=== PATIENT | male | born 1950 | race Caucasian/White ===

== ENCOUNTER 2018-01-29 15:17 | Outpatient (CLI) | payer MEDICARE | END 2018-01-29 15:18 | disposition short-term general hospital (02) | LOC: EMS 15:17 | PROVIDERS: ATTEND Surgery | DX: R55 Syncope and collapse (principal); R10.30 Lower abdominal pain, unspecified; R53.1 Weakness | CPT/HCPCS: A0170; A0425; A0427 ==

== ENCOUNTER 2021-02-25 11:19 | Emergency (ER) | payer MEDICARE, OTHER ==
--- OUTSIDE RECORDS SUMMARY | 2021-02-25 11:37 | EXTERNAL MEDICAL SUMMARY RPT | Continuity of Care Document ---
:1950 Demographics Phone Unavailable Preferred Language Unknown Marital Status Unknown Yazdanism Affiliation Unknown Race Unknown Ethnic Group Unknown Author Organization [facility] Address [address] [id number] Phone Social History date description facility [id number]
--- NOTE | 2021-02-25 12:22 | ED Physician Documentation ---
History of Present Illness - Stated complaint Stated Complaint: RT LEG RASH - Chief complaint Chief Complaint: General - History obtained from History obtained from: Patient - Additonal information Additional information: About 5 days of atraumatic pain in the right medial thigh from the inguinal ligament down towards the top of the knee. Last night he noticed a rash there which is now gone. 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 Review of Systems Constitutional: reports: Reviewed and negative Eyes: reports: Reviewed and negative Ears: reports: Reviewed and negative Nose: reports: Reviewed and negative Throat: reports: Reviewed and negative PD PAST MEDICAL HISTORY - Past Medical History Cardiovascular: Atrial fibrillation GI: GERD Musculoskeletal: Chronic back pain - Past Surgical History Past Surgical History: Yes - Present Medications Home Medications: Ambulatory Orders Medication Instructions Recorded Confirmed Cyclobenzaprine [Flexeril] 10 mg PO TID PRN 06/22/13 06/22/13 Esomeprazole Magnesium [Nexium] 40 mg PO DAILY 06/22/13 06/22/13 Rosuvastatin [Crestor] 20 mg PO QPM 06/22/13 06/22/13 Warfarin [Coumadin] 2.5 mg PO QDAC 06/22/13 06/22/13 - Allergies Allergies/Adverse Reactions: Allergies Allergy/AdvReac Type Severity Reaction Status Date / Time No Known Drug Allergies Allergy Verified 02/25/21 11:45 - Social History Does the pt smoke?: Yes Smoking Status: Current every day smoker Does the pt drink ETOH?: Yes Does the pt have substance abuse?: No - POLST Patient has POLST: No PD ED PE NORMAL - Vitals Vital signs reviewed: Yes - General General: Alert and oriented X 3, No acute distress - Extremities Extremities: Other (Right medial thigh is nontender, there is currently no rash anywhere in the area. No swelling. Gait is normal. Flexion extension at the knee and hip are normal.) - Neuro Neuro: Alert and oriented X 3, Normal speech Results - Vitals Vitals: Vital Signs - 24 hr 02/25/21 11:45 Temperature 36.2 C L Heart Rate 81 Respiratory 18 Rate Blood Pressure 125/67 O2 Saturation 98 Oxygen O2 Source Room air PD MEDICAL DECISION MAKING - ED course ED course: Initially, based on the history of presumed shingles given that pain proceeded to rash. Now rash is gone within 24 hours making shingles unlikely. There is no evidence clinically of hematoma and DVT is quite unlikely. Departure - Departure Disposition: 01 Home, Self Care Clinical Impression: Right leg pain Condition: Good Record reviewed to determine appropriate education?: Yes Instructions: ED Strain Muscle Ext Comments: As discussed, The cause of your leg pain is likely muscular but not completely clear. The rash seems to be gone and since you are therapeutically anticoagulated with Xarelto and given the atypical symptoms, DVT is quite unlikely. Return for new or worsening symptoms. Follow-up with your doctor midweek if still symptomatic. Tylenol as needed for pain.
[2021-02-25 12:28] VITALS: BP 131/74
== END 2021-02-25 12:29 | disposition home or self-care (01) ==
LOC: ED 11:19
DX: M79.651 Pain in right thigh (principal); F17.200 Nicotine dependence, unspecified, uncomplicated; Z79.01 Long term (current) use of anticoagulants
CPT/HCPCS: 99281; 99282

== ENCOUNTER 2022-10-03 13:51 | Emergency (ER) | payer MEDICARE, OTHER ==
[2022-10-03 14:33] LABS: BASOPHILS % (AUTO) 0.4 %; EOSINOPHILS # (AUTO) 0.1 10^3/uL (0.0-0.7); EOSINOPHILS % (AUTO) 1.1 %; HCT - HEMATOCRIT 37.5 % (42.0-52.0); HGB - HEMOGLOBIN 12.2 g/dL (14.0-18.0); LYMPHOCYTES # (AUTO) 0.5 10^3/uL (1.5-3.5); LYMPHOCYTES % (AUTO) 10.2 %; MEAN CORPUSCULAR HEMOGLOBIN 30.7 pg (27.0-31.0); MEAN CORPUSCULAR HGB CONC 32.5 g/dL (32.0-36.0); MEAN CORPUSCULAR VOLUME 94.5 fL (80.0-94.0); MEAN PLATELET VOLUME 9.1 fL (7.4-11.4); MONOCYTES # (AUTO) 0.7 10^3/uL (0.0-1.0); MONOCYTES % (AUTO) 14.3 %; NEUTROPHILS # (AUTO) 3.3 10^3/uL (1.5-6.6); NEUTROPHILS % (AUTO) 73.3 %; PLT - PLATELET COUNT 198 10^3/uL (130-450); RED BLOOD COUNT 3.97 10^6/uL (4.70-6.10); RED CELL DISTRIBUTION WIDTH 13.1 % (12.0-15.0); WHITE BLOOD COUNT 4.5 x10^3/uL (4.8-10.8)
[2022-10-03 14:39] LABS: INR 1.3 (0.8-1.2); PT - PROTHROMBIN TIME 14.9 secs (9.9-12.6)
[2022-10-03 14:45] LABS: ALBUMIN 3.5 g/dL (3.2-5.5); ALBUMIN/GLOBULIN RATIO 0.9 (1.0-2.2); BILIRUBIN,TOTAL 1.1 mg/dL (0.2-1.0); CALCIUM 9.5 mg/dL (8.5-10.3); CREATININE 1.5 mg/dL (0.6-1.2); POTASSIUM 3.6 mmol/L (3.5-5.0); TOTAL PROTEIN 7.2 g/dL (6.7-8.2)
[2022-10-03] MEDS ORDERED: SODIUM CHLORIDE 0.9% 1,000 ML IV STA ×3 (15:11→15:58)
[2022-10-03] MEDS ORDERED: ONDANSETRON 4 MG/2 ML VIAL IVP STA (15:11)
[2022-10-03] MEDS ORDERED: IPRATROPIUM/ALBUTEROL 3 ML NEB INH STA (15:11)
--- NOTE | 2022-10-03 15:14 | ED Physician Documentation ---
PD HPI URI - Stated complaint Stated Complaint: WEAK/NO ENERGY - Chief complaint Chief Complaint: Resp - History obtained from History obtained from: Patient, Family - History of Present Illness Timing - onset: How many days ago (4) Timing duration: Days (4) Timing details: Gradual onset Pain level max: 0 Pain level now: 0 Associated symptoms: No: Fever Contributing factors: Sick contact Improves by: Rest Worsened by: Activity, Breathing - Additional information Additional information: Patient is a 72-year-old male brought in by the emergency department with his today. He has been coughing for the past 3 to 4 days. He was seen at [facility] yesterday had a reportedly negative respiratory PCR as well as a chest CT that showed possible bronchitis versus pneumonia. Started on doxycycline. He is still feeling weak today. He was given IV fluids yesterday. states poor appetite. Patient reports mild nausea. Mild epigastric abdominal pain. They state that he was supposed to have cough medication, but they lost it. It was supposed to be Tessalon Perles. Review of Systems Constitutional: denies: Fever Nose: reports: Rhinorrhea / runny nose, Congestion Cardiac: denies: Chest pain / pressure, Palpitations Respiratory: reports: Cough GI: denies: Abdominal Pain, Nausea, Vomiting, Diarrhea Skin: denies: Rash Musculoskeletal: denies: Neck pain, Back pain Neurologic: denies: Headache PD PAST MEDICAL HISTORY - Past Medical History Cardiovascular: Atrial fibrillation, Murmur GI: GERD : Other Musculoskeletal: Chronic back pain Other Past Medical History: prostate cancer w/mets - Past Surgical History Past Surgical History: Yes Cardiovascular: CABG - Present Medications Home Medications: Ambulatory Orders Medication Instructions Recorded Confirmed Cyclobenzaprine [Flexeril] 10 mg PO TID PRN 06/22/13 06/22/13 Esomeprazole Magnesium [Nexium] 40 mg PO DAILY 06/22/13 06/22/13 Rosuvastatin [Crestor] 20 mg PO QPM 06/22/13 06/22/13 Warfarin [Coumadin] 2.5 mg PO QDAC 06/22/13 06/22/13 Albuterol Sulf [Ventolin Hfa 1 - 2 puffs INH Q4HR PRN #1 each 10/03/22 Inhaler] Benzonatate [Tessalon] 200 mg PO TID PRN #30 cap 10/03/22 Promethazine [Phenergan] 25 mg PO Q6H PRN #10 tab 10/03/22 predniSONE [Deltasone] 40 mg PO DAILY #10 tablet 10/03/22 - Allergies Allergies/Adverse Reactions: Allergies Allergy/AdvReac Type Severity Reaction Status Date / Time amoxicillin Allergy Unknown Verified 10/03/22 14:14 - Social History Does the pt smoke?: Yes Smoking Status: Current every day smoker Does the pt drink ETOH?: Yes Does the pt have substance abuse?: No - POLST Patient has POLST: No PD ED PE NORMAL - Vitals Vital signs reviewed: Yes - General General: Alert and oriented X 3, No acute distress, Well developed/nourished - HEENT HEENT: Moist mucous membranes - Neck Neck: Supple, no meningeal sign - Cardiac Cardiac: RRR, Strong equal pulses - Respiratory Respiratory: No respiratory distress, Other (Mild decreased breath sounds bilaterally) - Abdomen Abdomen: Soft, Non tender, Non distended - Derm Derm: Warm and dry - Extremities Extremities: No edema, No calf tenderness / cord - Neuro Neuro: Alert and oriented X 3 - Psych Psych: Normal mood, Normal affect Results - Vitals Vitals: Vital Signs - 24 hr 10/03/22 10/03/22 10/03/22 14:06 16:14 18:00 Temperature 36.5 C Heart Rate 118 H 104 H 98 Respiratory 32 H 18 18 Rate Blood Pressure 143/71 H 144/66 H 132/63 H O2 Saturation 97 97 99 Oxygen O2 Source Room air - Labs Labs: Laboratory Tests 10/03/22 10/03/22 10/03/22 14:28 14:28 14:28 WBC 4.5 L RBC 3.97 L Hgb 12.2 L Hct 37.5 L MCV 94.5 H MCH 30.7 MCHC 32.5 RDW 13.1 Plt Count 198 MPV 9.1 Neut # (Auto) 3.3 Lymph # (Auto) 0.5 L Charles # (Auto) 0.7 Eos # (Auto) 0.1 Baso # (Auto) 0.0 Absolute Nucleated RBC 0.00 Nucleated RBC % 0.0 PT 14.9 H INR 1.3 H Sodium 135 Potassium 3.6 Chloride 97 L Carbon Dioxide 25 Anion Gap 13.0 BUN 13 Creatinine 1.5 H Estimated GFR (MDRD) 46 L Glucose 120 H Lactic Acid Calcium 9.5 Total Bilirubin 1.1 H AST 24 ALT 15 Alkaline Phosphatase 43 Total Protein 7.2 Albumin 3.5 Globulin 3.7 Albumin/Globulin Ratio 0.9 L Lipase 20 L Urine Color Urine Clarity Urine pH Ur Specific [place] Urine Protein Urine Glucose (UA) Urine Ketones Urine Occult Blood Urine Nitrite Urine Bilirubin Urine Urobilinogen Ur Leukocyte Esterase Urine RBC Urine WBC Ur Squamous Epith Cells Urine Bacteria Urine Mucus Ur Microscopic Review Urine Culture Comments Nasal Adenovirus (PCR) Nasal B. parapertussis DNA (PCR) Nasal Coronavir 229E PCR Nasal Coronavir HKU1 PCR Nasal Coronavir NL63 PCR Nasal Coronavir OC43 PCR Nasal Enterovir/Rhinovir PCR Nasal Influenza B PCR Nasal Influenza A PCR Nasal Parainfluen 1 PCR Nasal Parainfluen 2 PCR Nasal Parainfluen 3 PCR Nasal Parainfluen 4 PCR Nasal RSV (PCR) Nasal B.pertussis DNA PCR Nasal C.pneumoniae (PCR) Denys Human Metapneumo PCR Nasal M.pneumoniae (PCR) Nasal SARS-CoV-2 (PCR) 10/03/22 10/03/22 10/03/22 14:28 15:00 15:29 WBC RBC Hgb Hct MCV MCH MCHC RDW Plt Count MPV Neut # (Auto) Lymph # (Auto) Charles # (Auto) Eos # (Auto) Baso # (Auto) Absolute Nucleated RBC Nucleated RBC % PT INR Sodium Potassium Chloride Carbon Dioxide Anion Gap BUN Creatinine Estimated GFR (MDRD) Glucose Lactic Acid 1.2 Calcium Total Bilirubin AST ALT Alkaline Phosphatase Total Protein Albumin Globulin Albumin/Globulin Ratio Lipase Urine Color DARK YELLOW Urine Clarity CLEAR Urine pH 6.0 Ur Specific [place] >=1.030 H Urine Protein 100 H Urine Glucose (UA) NEGATIVE Urine Ketones 15 H Urine Occult Blood MODERATE H Urine Nitrite NEGATIVE Urine Bilirubin NEGATIVE Urine Urobilinogen 1 (NORMAL) Ur Leukocyte Esterase NEGATIVE Urine RBC 0-5 Urine WBC 0-3 Ur Squamous Epith Cells RARE Squamous Urine Bacteria Few Urine Mucus Moderate Strands Ur Microscopic Review INDICATED Urine Culture Comments NOT INDICATED Nasal Adenovirus (PCR) NOT DETECTED Nasal B. parapertussis DNA (PCR) NOT DETECTED Nasal Coronavir 229E PCR NOT DETECTED Nasal Coronavir HKU1 PCR NOT DETECTED Nasal Coronavir NL63 PCR NOT DETECTED Nasal Coronavir OC43 PCR NOT DETECTED Nasal Enterovir/Rhinovir PCR NOT DETECTED Nasal Influenza B PCR NOT DETECTED Nasal Influenza A PCR NOT DETECTED Nasal Parainfluen 1 PCR NOT DETECTED Nasal Parainfluen 2 PCR NOT DETECTED Nasal Parainfluen 3 PCR NOT DETECTED Nasal Parainfluen 4 PCR NOT DETECTED Nasal RSV (PCR) NOT DETECTED Nasal B.pertussis DNA PCR NOT DETECTED Nasal C.pneumoniae (PCR) NOT DETECTED Denys Human Metapneumo PCR NOT DETECTED Nasal M.pneumoniae (PCR) NOT DETECTED Nasal SARS-CoV-2 (PCR) NOT DETECTED - Rads (name of study) cxr Radiology: Final report received, EMP read contemporaneously, See rad report PD MEDICAL DECISION MAKING - ED course Complexity details: reviewed results, re-evaluated patient, considered differential, d/w patient, d/w family ED course: Patient is a 72-year-old male with a history of metastatic prostate cancer who presents to the emergency department after being diagnosed with pneumonia yesterday at [facility]. He has poor appetite. Poor oral intake. Was given 2 L of IV fluids and feels much better. Will prescribe nausea medication for home as well. He is eating and drinking without difficulty here. No vomiting. No significant lab abnormalities. He will continue his antibiotics as prescribed. Patient counseled regarding signs and symptoms for which I believe and urgent re-evaluation would be necessary. Patient with good understanding of and agreement to plan and is comfortable going home at this time This document was made in part using voice recognition software. While efforts are made to proofread this document, sound alike and grammatical errors may occur. MPRESSION: Minimal patchy opacity present projecting over the right mid-lower lung. This could represent a small region of airspace disease, such as pneumonia, or possibly non-specific sclerosis of the right anterior 4th rib. Departure - Departure Disposition: 01 Home, Self Care Clinical Impression: Pneumonia Qualifiers: Pneumonia type: due to unspecified organism Laterality: unspecified laterality Lung location: unspecified part of lung Qualified Code(s): J18.9 - Pneumonia, unspecified organism Condition: Good Instructions: ED Pneumonia Adult Follow-Up: Ray Sky MD [Primary Care Provider] - Within 1 week Prescriptions: Albuterol Sulf [Ventolin Hfa Inhaler] 1 - 2 puffs INH Q4HR PRN #1 each PRN Reason: Shortness Of Air/Wheezing predniSONE [Deltasone] 40 mg PO DAILY #10 tablet Promethazine [Phenergan] 25 mg PO Q6H PRN #10 tab PRN Reason: Nausea / Vomiting Benzonatate [Tessalon] 200 mg PO TID PRN #30 cap PRN Reason: Cough Comments: Your prescriptions were sent to [facility] in [place]. Please continue your antibiotics at home. Please return if you worsen. Please follow-up with your doctor for further care. Discharge Date/Time: 10/03/22 18:14
[2022-10-03 15:40] LABS: GLUCOSE, URINE (UA) NEGATIVE (NEGATIVE); KETONES,URINE (UA) 15 mg/dL (NEGATIVE); LEUKOCYTE ESTERASE, URINE NEGATIVE (NEGATIVE); NITRITE,URINE NEGATIVE (NEGATIVE); OCCULT BLOOD,URINE MODERATE (NEGATIVE); PROTEIN,URINE 100 mg/dL (NEGATIVE); UROBILINOGEN,URINE 1 (NORMAL) E.U./dL (NORMAL)
[2022-10-03 15:44] LABS: CLARITY,URINE CLEAR (CLEAR)
[2022-10-03 15:45] LABS: BILIRUBIN,URINE NEGATIVE (NEGATIVE); ICTOTEST,URINE NEGATIVE
[2022-10-03 15:47] LABS: BACTERIA,URINE Few /HPF (None Seen); MUCUS,URINE Moderate Strands; RBC,URINE 0-5 /HPF (0-5); SQUAMOUS EPITHELIAL CELL,UR RARE Squamous (<= Few); WBC,URINE 0-3 /HPF (0-3)
--- NOTE | 2022-10-03 15:48 | XRAY Report ---
PROCEDURE: Chest 1 View X-Ray INDICATIONS: cough TECHNIQUE: One view of the chest was acquired. COMPARISON: None. FINDINGS: Surgical changes and devices: Median sternotomy wires. Lungs and pleura: No pleural effusions or pneumothorax. Minimal patchy opacity present at the right mid-lower lung. Mediastinum: Mediastinal contours appear normal. Heart size is normal. IMPRESSION: Minimal patchy opacity present projecting over the right mid-lower lung. This could represent a small region of airspace disease, such as pneumonia, or possibly non-specific sclerosis of the right anter ior 4th rib. Reviewed by: Umair Hodges MD on 10/03/2022 3:47 PM PST Approved by: Umair Hodges MD on 10/03/2022 3:47 PM PST Station ID: [id number]
[2022-10-03 15:59] LABS: B. PARAPERTUSSIS- RESP PCR PAN NOT DETECTED; B. PERTUSSIS- RESP PCR PANEL NOT DETECTED; C. PNEUMONIAE- RESP PCR PANEL NOT DETECTED; CORONAVIRUS 229E-RESP PCR NOT DETECTED; CORONAVIRUS HKU1-RESP PCR NOT DETECTED; CORONAVIRUS NL63-RESP PCR NOT DETECTED; CORONAVIRUS OC43-RESP PCR NOT DETECTED; HUMAN METAPNEUMOVIRUS NOT DETECTED; INFLUENZA A- RESP PCR PANEL NOT DETECTED; INFLUENZA B - RESP PCR PANEL NOT DETECTED; M. PNEUMONIAE- RESP PCR PANEL NOT DETECTED; PARAINFLUENZA VIRUS 1 NOT DETECTED; PARAINFLUENZA VIRUS 2 NOT DETECTED; PARAINFLUENZA VIRUS 3 NOT DETECTED; PARAINFLUENZA VIRUS 4 NOT DETECTED; RHINOVIRUS/ENTEROVIRUS NOT DETECTED; RSV- RESP PCR PANEL NOT DETECTED; SARS-CoV-2 -RESP PCR PANEL NOT DETECTED
[2022-10-03] MEDS ORDERED: cefTRIAXone 1 GM VIAL IVP STA (16:03)
[2022-10-03] MEDS ORDERED: DEXAMETHASONE 10 MG/ML VIAL IVP STA (16:03)
[2022-10-03] MEDS ORDERED: BENZONATATE 100 MG CAPSULE PO STA (17:54)
[2022-10-03 18:05] VITALS: BP 132/63
== END 2022-10-03 18:14 | disposition home or self-care (01) ==
LOC: ED 13:51
DX: J18.9 Pneumonia, unspecified organism (principal); F17.200 Nicotine dependence, unspecified, uncomplicated; Z20.822 Contact with and (suspected) exposure to COVID-19
CPT/HCPCS: 36415; 71045; 80053; 81001; 83605; 83690; 85025; 85610; 87633; 96361; 96374; 96375; 99284; A9270; 81003; 87086

== ENCOUNTER 2023-07-13 19:33 | Emergency (ER) | payer MEDICARE, OTHER ==
[2023-07-13] MEDS ORDERED: SODIUM CHLORIDE 0.9% 1,000 ML IV STA (19:51)
[2023-07-13 20:08] LABS: BASOPHILS % (AUTO) 0.4 %; EOSINOPHILS # (AUTO) 0.1 10^3/uL (0.0-0.7); EOSINOPHILS % (AUTO) 0.6 %; HCT - HEMATOCRIT 33.6 % (42.0-52.0); HGB - HEMOGLOBIN 10.9 g/dL (14.0-18.0); LYMPHOCYTES # (AUTO) 0.6 10^3/uL (1.5-3.5); MEAN CORPUSCULAR HEMOGLOBIN 29.7 pg (27.0-31.0); MEAN CORPUSCULAR HGB CONC 32.4 g/dL (32.0-36.0); MEAN CORPUSCULAR VOLUME 91.6 fL (80.0-94.0); MONOCYTES # (AUTO) 0.6 10^3/uL (0.0-1.0); MONOCYTES % (AUTO) 6.7 %; NEUTROPHILS # (AUTO) 7.2 10^3/uL (1.5-6.6); NEUTROPHILS % (AUTO) 84.8 %; PLT - PLATELET COUNT 185 10^3/uL (130-450); RED BLOOD COUNT 3.67 10^6/uL (4.70-6.10); RED CELL DISTRIBUTION WIDTH 14.4 % (12.0-15.0); WHITE BLOOD COUNT 8.5 x10^3/uL (4.8-10.8)
[2023-07-13 20:26] LABS: ALBUMIN 3.7 g/dL (3.2-5.5); ALBUMIN/GLOBULIN RATIO 1.5 (1.0-2.2); BILIRUBIN,TOTAL 1.4 mg/dL (0.2-1.0); CALCIUM 9.6 mg/dL (8.5-10.3); CREATININE 1.7 mg/dL (0.6-1.3); POTASSIUM 3.6 mmol/L (3.5-4.5); TOTAL PROTEIN 6.1 g/dL (6.4-8.9)
[2023-07-13 20:51] LABS: GLUCOSE, URINE (UA) NEGATIVE (NEGATIVE); KETONES,URINE (UA) TRACE mg/dL (NEGATIVE); LEUKOCYTE ESTERASE, URINE NEGATIVE (NEGATIVE); NITRITE,URINE NEGATIVE (NEGATIVE); OCCULT BLOOD,URINE MODERATE (NEGATIVE); PROTEIN,URINE 30 mg/dL (NEGATIVE); UROBILINOGEN,URINE 1 (NORMAL) E.U./dL (NORMAL)
[2023-07-13 20:58] LABS: BILIRUBIN,URINE MODERATE (NEGATIVE); CLARITY,URINE HAZY (CLEAR); ICTOTEST,URINE POSITIVE
[2023-07-13 20:59] LABS: AMORPHOUS SEDIMENT,UR Rare /LPF; BACTERIA,URINE Few /HPF (None Seen); CASTS, URINE 0-2 Hyaline Casts /LPF; RBC,URINE 0-5 /HPF (0-5); SQUAMOUS EPITHELIAL CELL,UR MOD Squamous (<= Few); WBC,URINE 0-3 /HPF (0-3)
[2023-07-13] MEDS ORDERED: levoFLOXacin 500 MG/100 ML 500 MG/100 ML BAG IV STA (21:04)
[2023-07-13] MEDS ORDERED: metroNIDAZOLE 500 MG/100 ML 500 MG/100 ML BAG IV ONE (21:04)
--- NOTE | 2023-07-13 21:07 | ED Physician Documentation ---
PD HPI ABD PAIN - Stated complaint Stated Complaint: NAUSEA,FEVER - Chief complaint Chief Complaint: Abd Pain - History obtained from History obtained from: Patient - Additional information Additional information: 72-year-old gentleman with history of prostate cancer on abiraterone, history of A-fib status post ablation on Xarelto who developed generalized abdominal pain fever up to 102 and shaking chills today. Blood pressure at home was in the range of 80/50. No vomiting or diarrhea. No history of abdominal surgeries. PD PAST MEDICAL HISTORY - Past Medical History Cardiovascular: Atrial fibrillation, Murmur GI: GERD : Other Musculoskeletal: Chronic back pain - Past Surgical History Past Surgical History: Yes Cardiovascular: CABG - Present Medications Home Medications: Ambulatory Orders Medication Instructions Recorded Confirmed Cyclobenzaprine [Flexeril] 10 mg PO TID PRN 06/22/13 06/22/13 Esomeprazole Magnesium [Nexium] 40 mg PO DAILY 06/22/13 06/22/13 Rosuvastatin [Crestor] 20 mg PO QPM 06/22/13 06/22/13 Warfarin [Coumadin] 2.5 mg PO QDAC 06/22/13 06/22/13 Albuterol Sulf [Ventolin Hfa 1 - 2 puffs INH Q4HR PRN #1 each 10/03/22 Inhaler] Benzonatate [Tessalon] 200 mg PO TID PRN #30 cap 10/03/22 Promethazine [Phenergan] 25 mg PO Q6H PRN #10 tab 10/03/22 predniSONE [Deltasone] 40 mg PO DAILY #10 tablet 10/03/22 - Allergies Allergies/Adverse Reactions: Allergies Allergy/AdvReac Type Severity Reaction Status Date / Time amoxicillin Allergy Unknown Verified 07/13/23 19:38 - Social History Does the pt smoke?: Yes Smoking Status: Current every day smoker Does the pt drink ETOH?: Yes Does the pt have substance abuse?: No - POLST Patient has POLST: No PD ED PE NORMAL - Vitals Vital signs reviewed: Yes (Borderline blood pressure) - General General: Alert and oriented X 3, No acute distress - Cardiac Cardiac: RRR, Other (Decrescendo systolic heart murmur, old per patient) - Respiratory Respiratory: No respiratory distress, Clear bilaterally - Abdomen Abdomen: Soft, Non tender - Derm Derm: Normal color, Warm and dry, No rash - Extremities Extremities: No edema, No calf tenderness / cord - Neuro Neuro: Alert and oriented X 3, Normal speech Results - Vitals Vitals: Vital Signs - 24 hr 07/13/23 07/13/23 19:38 21:41 Temperature 36.6 C Heart Rate 88 81 Respiratory 16 16 Rate Blood Pressure 90/50 L 107/61 O2 Saturation 98 98 Oxygen O2 Source Room air - Labs Labs: Laboratory Tests 07/13/23 07/13/23 07/13/23 20:00 20:00 20:00 WBC 8.5 RBC 3.67 L Hgb 10.9 L Hct 33.6 L MCV 91.6 MCH 29.7 MCHC 32.4 RDW 14.4 Plt Count 185 MPV 9.0 Neut # (Auto) 7.2 H Lymph # (Auto) 0.6 L Miner # (Auto) 0.6 Eos # (Auto) 0.1 Baso # (Auto) 0.0 Absolute Nucleated RBC 0.00 Nucleated RBC % 0.0 Sodium 137 Potassium 3.6 Chloride 104 Carbon Dioxide 25 Anion Gap 8.0 BUN 17 Creatinine 1.7 H Estimated GFR (MDRD) 40 L Glucose 99 Lactic Acid 1.6 Calcium 9.6 Total Bilirubin 1.4 H AST 372 H ALT 161 H Alkaline Phosphatase 276 H Total Protein 6.1 L Albumin 3.7 Globulin 2.4 Albumin/Globulin Ratio 1.5 Lipase 213 H Urine Color Urine Clarity Urine pH Ur Specific [place] Urine Protein Urine Glucose (UA) Urine Ketones Urine Occult Blood Urine Nitrite Urine Bilirubin Urine Urobilinogen Ur Leukocyte Esterase Urine RBC Urine WBC Ur Squamous Epith Cells Amorphous Sediment Urine Bacteria Urine Casts Ur Microscopic Review Urine Culture Comments 07/13/23 20:30 WBC RBC Hgb Hct MCV MCH MCHC RDW Plt Count MPV Neut # (Auto) Lymph # (Auto) Miner # (Auto) Eos # (Auto) Baso # (Auto) Absolute Nucleated RBC Nucleated RBC % Sodium Potassium Chloride Carbon Dioxide Anion Gap BUN Creatinine Estimated GFR (MDRD) Glucose Lactic Acid Calcium Total Bilirubin AST ALT Alkaline Phosphatase Total Protein Albumin Globulin Albumin/Globulin Ratio Lipase Urine Color DARK YELLOW Urine Clarity HAZY Urine pH 5.0 Ur Specific [place] 1.025 Urine Protein 30 H Urine Glucose (UA) NEGATIVE Urine Ketones TRACE Urine Occult Blood MODERATE H Urine Nitrite NEGATIVE Urine Bilirubin MODERATE H Urine Urobilinogen 1 (NORMAL) Ur Leukocyte Esterase NEGATIVE Urine RBC 0-5 Urine WBC 0-3 Ur Squamous Epith Cells MOD Squamous H Amorphous Sediment Rare Urine Bacteria Few Urine Casts 0-2 Hyaline Casts Ur Microscopic Review INDICATED Urine Culture Comments NOT INDICATED - Rads (name of study) Right upper quadrant ultrasound showing severe CBD dilatation at 19 mm. Relevant Findings:: Final report received, EMP independent interpretation of test PD Medical Decision Making - ED course ED course: 72-year-old gentleman with history of prostate cancer and A-fib status post ablation on Xarelto presents with abdominal pain and fever at home with shaking chills. Benign abdominal exam, and no other evidence of infection on history or physical. Initial work-up demonstrates normal white count at 8.5, chemistry panel is notable for mild pancreatitis in the setting of transaminitis and elevated creatinine. Urinalysis with some bilirubin and blood but no infection. He was sent for both CT and ultrasound imaging of his abdomen given the above findings. The ultrasound was preliminarily reported to me as not having gallstones but he does have a very dilated common bile duct at around 19 mm. This would suggest obstruction of the distal common bile duct and a sending cholangitis. He was given levofloxacin and Flagyl after blood cultures noting amoxicillin allergy. Care to Dr. Cage at shift change pending CT, after which disposition will pend the results, as he may need transfer for ERCP. Departure - Departure Clinical Impression: Ascending cholangitis, Biliary obstruction Forms: PCP List
--- NOTE | 2023-07-13 21:38 | Ultrasound Report ---
PROCEDURE: Abdomen Limited INDICATIONS: Abdominal pain with elevated liver enz, eval RUQ TECHNIQUE: Real-time focused scanning was performed of the abdomen, with image documentation. COMPARISONS: None. FINDINGS: Liver: Liver is normal in size and homogeneous in echotexture. Gallbladder: Distended. Mild wall thickening. No radiopaque stones. Negative sonographic Chung sign. Biliary ducts: Intrahepatic bile ducts are non-dilated. Extrahepatic bile duct caliber measures 19 mm. Normal is 6-7 mm or less in diameter, or 10 mm or less post-cholecystectomy. Pancreas: Not well visualized due to overlying bowel gas. Right kidney: Normal in size and echotexture. Right kidney measures 11.4 cm long. No hydronephrosis or nephrolithiasis. No solid masses. No complex renal cystic lesions which require follow-up. Aorta: Visualized aorta is normal in caliber at less than 3 cm. IVC: Intrahepatic inferior vena cava is patent. Miscellaneous: No free abdominal fluid. IMPRESSION: Severe common bile duct dilation, measuring 19 mm. Differential includes obstructing stone or pancrea tic mass. Recommend cross-sectional imaging. Reviewed by: Anam Leong on 07/13/2023 9:37 PM PDT Approved by: Anam Leong on 07/13/2023 9:37 PM PDT Station ID: [id number]
--- NOTE | 2023-07-13 23:23 | CT Report ---
PROCEDURE: ABDOMEN/PELVIS W INDICATIONS: IV only, abd pain and fever CONTRAST: Omni 300 100ml TECHNIQUE: After the administration of intravenous contrast, 5 mm thick sections acquired from the diaphragms to the symphysis. 5 mm thick coronal and sagittal reformats were acquired. For radiation dose reducti on, the following was used: automated exposure control, adjustment of mA and/or kV according to jose maria ent size. COMPARISON: Same day ultrasound FINDINGS: Image quality: Excellent. Lung bases and heart: Small hiatal hernia. Liver: Hyperattenuating lesion at the liver dome measuring 2.8 cm (series 2, image 15). Gallbladder and biliary tree: The gallbladder is distended, with a mildly thickened wall. No radiopaq ue stones. Intrahepatic and extrahepatic biliary dilation, greater than expected for age. The common bile duct measures 2.1 cm. No filling defect within the common bile duct. Spleen: No splenomegaly. Pancreas: There is a solid mass in the pancreatic head measuring 2.7 x 1.8 cm (series 5, image 24 adj acent cystic mass in the pancreatic head measuring 3.8 x 2.8 cm (series 2, image 33). Fatty atrophy o f the pancreas, without ductal dilation. Adrenals: No adrenal nodule. Kidneys and ureters: No hydronephrosis. No renal cystic lesion which requires follow up. No solid mas s. Bowel and peritoneum: No bowel distension. No pathologic free fluid. Focus of ovoid fat stranding in the left lower quadrant measuring 2.3 x 1.8 cm (series 2, image 61). Colonic diverticulosis without e vidence of diverticulitis. Lymph nodes: No central or retroperitoneal adenopathy. Vessels: No infrarenal aortic aneurysm. PELVIS Reproductive organs: Unremarkable. Bladder: No abnormal wall thickening, accounting for underdistension. Pelvic lymph nodes: No pelvic adenopathy by size criteria. Bones: Heterogeneous appearance of the L5 vertebral body and slightly heterogeneous appearance of the L2 vertebral body. Other: No significant ventral or inguinal hernia. IMPRESSION: Suspected obstructing mass in the pancreatic head measuring 2.7 x 1.8 cm. This results in intrahepati c and extrahepatic biliary dilation. 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 This can be further evaluated with MRI with contrast/MRCP or GI endosco pic evaluation. Recommend GI referral. Additional cystic mass in the pancreatic head measuring 2.7 x 1.8 cm. This can be further evaluated w ith MRI. Small focus of ovoid fat stranding in the left lower quadrant, suggestive of intraperitoneal fat necr osis. Heterogeneous appearance of the L5 vertebral body and slightly heterogeneous appearance of the L2 humza tebral body, nonspecific in the presence of suspected malignancy. Hyperattenuating lesion at the liver dome measuring 2.8 cm. This can be further evaluated with MRI. D ifferential includes vascular shunt or less likely metastatic disease. Reviewed by: Anam Leong on 07/13/2023 11:22 PM PDT Approved by: Anam Leong on 07/13/2023 11:22 PM PDT Station ID: [id number]
[2023-07-14] MEDS ORDERED: HYDROmorphone 1 MG/ML CARPUJECT IVP STA (00:15)
[2023-07-14] MEDS ORDERED: DROPERIDOL 5 MG/2 ML VIAL IVP STA (00:15)
[2023-07-14] MEDS ORDERED: iohexoL-300 100 ML VIAL IVP ONE (00:19)
[2023-07-14] MEDS ORDERED: ONDANSETRON ODT 4 MG Prepack 2 TL PRN (00:30)
[2023-07-14] MEDS ORDERED: oxyCODONE/ACET 5/325 Prepack 4 PO STA (00:30)
[2023-07-14 01:08] VITALS: BP 108/63; O2SAT 93
--- NOTE | 2023-07-14 07:28 | ED Physician Documentation ---
ED Addendum - Addendum Addendum: 07/14/23 07:19 Patient was signed out to me at change of shift by Dr. Lyn, pending CT scan of the abdomen and pelvis after this patient developed fever over the last couple days and some upper abdominal pain over the past approximately 24 hours. The patient was found to have transaminitis and ultrasound was obtained, which showed a significantly dilated common bile duct but no stones and no evidence of cholecystitis. The patient was started on antibiotics presumptively, given his fever and biliary obstruction. CT was ordered to try to help determine the cause of the obstruction. 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 The patient had already been requesting to just be discharged and call his rumper in the morning. I did go and speak at length with the patient and his . The patient has a history of prostate cancer that has recently flared up and become more aggressive and the patient has been seeing his oncologist through [facility] for this. He is well-established with a rumper in [place], and the patient and state that they would prefer to just call the specialist in the morning to get the ball rolling for work-up, follow-up visits, and determination of scope of management. I have discussed with the patient and his that he does have a normal white blood cell count and lactic acid level which is encouraging in terms of concern over the possibility of ascending cholangitis; however, I have discussed with them that the patient could also deteriorate rapidly and considering what is going on and we can absolutely work on finding a transfer situation so that the patient can have inpatient care for this. The patient is adamant that he wants to go home. Given that he has well-established specialty connections and that he does have a normal white blood cell count and lactic acid level, and given that this is a mass which likely has been growing for some time as opposed to an acute obstruction by stone, I discussed with the patient that I am willing to discharge him to care in the outpatient setting, with the understanding that the patient needs to have a very, very low threshold for return. We have discussed that worsening abdominal pain and jaundice with ongoing fevers, or general sense of worsening should prompt immediate return return to the emergency department. I have prescribed the Levaquin and Flagyl that the patient has received here, and I have also prescribed pain and nausea medication. The patient has expressed understanding of our entire conversation. Final impression: See original note Disposition: Home in stable condition.
--- NOTE | 2023-07-15 17:03 | ED Physician Documentation ---
ED Addendum - Addendum Addendum: 07/15/23 17:03 1/2 cx pos for coag neg staph. likely contaminant.
== END 2023-07-14 01:03 | disposition home or self-care (01) ==
LOC: ED 19:33
DX: K74.3 Primary biliary cirrhosis (principal); K83.1 Obstruction of bile duct; I48.91 Unspecified atrial fibrillation; Z79.01 Long term (current) use of anticoagulants; F17.200 Nicotine dependence, unspecified, uncomplicated
CPT/HCPCS: 36415; 74177; 76705; 80053; 81001; 83605; 83690; 85025; 87040; 87150; 96365; 96366; 96368; 96375; 99284; J1170; Q9967; 81003; 87086

== ENCOUNTER 2023-09-12 13:33 | Emergency (ER) | payer MEDICARE, OTHER ==
[2023-09-12] MEDS ORDERED: SODIUM CHLORIDE 0.9% 1,000 ML IV STA ×2 (13:46→14:33)
[2023-09-12 14:06] LABS: BASOPHILS % (AUTO) 0.8 %; EOSINOPHILS % (AUTO) 1.2 %; HGB - HEMOGLOBIN 9.1 g/dL (14.0-18.0); LYMPHOCYTES % (AUTO) 11.7 %; MEAN CORPUSCULAR HEMOGLOBIN 27.7 pg (27.0-31.0); MEAN CORPUSCULAR HGB CONC 32.5 g/dL (32.0-36.0); MEAN CORPUSCULAR VOLUME 85.4 fL (80.0-94.0); MONOCYTES % (AUTO) 21.4 %; NEUTROPHILS % (AUTO) 61.2 %; PLT - PLATELET COUNT 172 10^3/uL (130-450); RED BLOOD COUNT 3.28 10^6/uL (4.70-6.10); RED CELL DISTRIBUTION WIDTH 15.7 % (12.0-15.0); WHITE BLOOD COUNT 5.1 x10^3/uL (4.8-10.8)
--- NOTE | 2023-09-12 14:06 | ED Physician Documentation ---
History of Present Illness - Stated complaint Stated Complaint: DEHYDRATION - Chief complaint Chief Complaint: General - History obtained from History obtained from: Patient - History of Present Illness Timing: Today Pain level max: 0 Pain level now: 0 - Additonal information Additional information: Patient is a 73-year-old male who presents to the emergency department complaining of weakness and dehydration. He has a cancer patient, has pancreatic and prostate cancer. He is currently undergoing every other week chemotherapy. His oncologist reportedly told him today that he should come receive IV fluids at the hospital because he appears dehydrated. The patient has had diarrhea, ongoing for the past several weeks since having chemotherapy. Has had some nausea and vomiting as well. No blood in the stool. No blood in the emesis. No fevers. No chills. Nothing makes it better or worse. His fami ly states that his blood pressure is normally low. Review of Systems Constitutional: denies: Fever, Chills Respiratory: denies: Cough Skin: denies: Rash Musculoskeletal: denies: Neck pain, Back pain PD PAST MEDICAL HISTORY - Past Medical History Past Medical History: Yes Cardiovascular: Atrial fibrillation, Murmur GI: GERD, Other : Other Musculoskeletal: Chronic back pain Other Past Medical History: pancreatic cancer - Past Surgical History Past Surgical History: Yes Cardiovascular: CABG - Present Medications Home Medications: Ambulatory Orders Medication Instructions Recorded Confirmed Cyclobenzaprine [Flexeril] 10 mg PO TID PRN 06/22/13 06/22/13 Esomeprazole Magnesium [Nexium] 40 mg PO DAILY 06/22/13 06/22/13 Rosuvastatin [Crestor] 20 mg PO QPM 06/22/13 06/22/13 Warfarin [Coumadin] 2.5 mg PO QDAC 06/22/13 06/22/13 Albuterol Sulf [Ventolin Hfa 1 - 2 puffs INH Q4HR PRN #1 each 10/03/22 Inhaler] Benzonatate [Tessalon] 200 mg PO TID PRN #30 cap 10/03/22 Promethazine [Phenergan] 25 mg PO Q6H PRN #10 tab 10/03/22 predniSONE [Deltasone] 40 mg PO DAILY #10 tablet 10/03/22 Ondansetron Odt [Zofran] 4 mg TL Q6H PRN #10 tablet 08/29/23 Oxycodone HCl/Acetaminophen 1 - 2 each PO Q6H PRN #14 tablet 07/14/23 [Percocet 5-325 mg Tablet] levoFLOXacin [Levaquin] 500 mg PO QD #28 tablet 07/14/23 metroNIDAZOLE [Flagyl] 500 mg PO BID 14 Days #28 tablet 07/14/23 - Allergies Allergies/Adverse Reactions: Allergies Allergy/AdvReac Type Severity Reaction Status Date / Time amoxicillin Allergy Unknown Verified 07/13/23 19:38 - Social History Does the pt smoke?: Yes Smoking Status: Current every day smoker Does the pt drink ETOH?: Yes Does the pt have substance abuse?: No - POLST Patient has POLST: No PD ED PE NORMAL - Vitals Vital signs reviewed: Yes - General General: Alert and oriented X 3, No acute distress - HEENT HEENT: Other (Dry lips and tongue) - Neck Neck: Supple, no meningeal sign - Cardiac Cardiac: RRR, Strong equal pulses - Respiratory Respiratory: No respiratory distress, Clear bilaterally - Abdomen Abdomen: Soft, Non tender, Non distended - Back Back: No CVA TTP, No spinal TTP - Derm Derm: Warm and dry - Extremities Extremities: No calf tenderness / cord - Neuro Neuro: Alert and oriented X 3 - Psych Psych: Normal mood, Normal affect Results - Vitals Vitals: Vital Signs - 24 hr 09/12/23 09/12/23 09/12/23 13:38 15:31 15:56 Temperature 37.2 C Heart Rate 124 H 98 91 Respiratory 20 18 19 Rate Blood Pressure 92/55 L 142/62 H 143/65 H O2 Saturation 96 100 100 Oxygen O2 Source Room air - Labs Labs: Laboratory Tests 09/12/23 09/12/23 13:59 13:59 WBC 5.1 RBC 3.28 L Hgb 9.1 L Hct 28.0 L MCV 85.4 MCH 27.7 MCHC 32.5 RDW 15.7 H Plt Count 172 MPV 9.0 Neut # (Auto) Not Reportable Lymph # (Auto) Not Reportable [place] # (Auto) Not Reportable Eos # (Auto) Not Reportable Baso # (Auto) Not Reportable Absolute Nucleated RBC Not Reportable Total Counted 100 Band Neuts % (Manual) 8 Abnorm Lymph % (Manual) 0 Nucleated RBC % Not Reportable Neutrophils # (Manual) 3.6 Lymphocytes # (Manual) 0.4 L Monocytes # (Manual) 1.1 H Eosinophils # (Manual) 0.1 Basophils # (Manual) 0.0 Differential Comment MANUAL DIFFERENTIAL Manual Slide Review Indicated WBC Morphology 3+ DOHLE BODIES Platelet Estimate NORMAL (130-450,000) Platelet Morphology NORMAL APPEARANCE RBC Morph Micro Appear NORMAL APPEARANCE Sodium 135 Potassium 3.8 Chloride 104 Carbon Dioxide 22 Anion Gap 9.0 BUN 18 Creatinine 1.5 H Estimated GFR (MDRD) 46 L Glucose 115 H Calcium 9.1 Phosphorus 2.1 L Magnesium 1.4 L Total Bilirubin 0.6 AST 14 ALT 9 L Alkaline Phosphatase 38 L Total Protein 6.2 L Albumin 3.4 Globulin 2.8 Albumin/Globulin Ratio 1.2 Lipase < 10 L PD Medical Decision Making - ED course Complexity details: reviewed results, re-evaluated patient, considered differential, d/w patient, d/w family ED course: Patient received IV fluids as well as IV magnesium for his hypomagnesemia. Blood pressure improved, heart rate decreased. Patient feels better. Tolerating p.o. well here. We will have him follow-up with his doctor for further care. Patient is well-appearing, nontoxic. Afebrile. Patient and guy shelton counseled regarding signs and symptoms for which I believe and urgent re- evaluation would be necessary. Patient with good understanding of and agreement to plan and is comfortable going home at this time This document was made in part using voice recognition software. While efforts are made to proofread this document, sound alike and grammatical errors may occur. Departure - Departure Disposition: 01 Home, Self Care Clinical Impression: Dehydration, Hypomagnesemia Condition: Good Instructions: ED Dehydration Follow-Up: your,doctor in 1 week [Other] Comments: Please make sure you are drinking plenty of fluids at home. You were given IV fluids and magnesium today. Your blood pressure improved. Please return if you worsen Forms: PCP List Discharge Date/Time: 09/12/23 16:04
[2023-09-12 14:08] LABS: SLIDE REVIEW? Indicated
[2023-09-12 14:09] LABS: ABNORMAL LYMPHS % (MANUAL) 0 %
[2023-09-12 14:24] LABS: BAND NEUTROPHILS % (MANUAL) 8 %; DIFFERENTIAL COMMENT MANUAL DIFFERENTIAL; EOSINOPHILS # (MANUAL) 0.1 10^3/uL (0-0.7); LYMPHOCYTES # (MANUAL) 0.4 10^3/uL (1.5-3.5); LYMPHOCYTES % (MANUAL) 7 %; MONOCYTES # (MANUAL) 1.1 10^3/uL (0.0-1.0); NEUTROPHILS # (MANUAL) 3.6 10^3/uL (1.5-6.6); RBC MORPHOLOGY (MULTIPLE) NORMAL APPEARANCE (NORMAL)
[2023-09-12 14:25] LABS: PLATELET ESTIMATE, MANUAL NORMAL (130-450,000) (NORMAL); PLATELET MORPHOLOGY NORMAL APPEARANCE (NORMAL)
[2023-09-12 14:29] LABS: ALBUMIN 3.4 g/dL (3.2-5.5); ALBUMIN/GLOBULIN RATIO 1.2 (1.0-2.2); ALKALINE PHOSPHATASE 38 IU/L (42-121); ALT ALANINE AMINOTRANSFERASE 9 IU/L (10-60); AST ASPARTATE AMINOTRANSFERASE 14 IU/L (10-42); BILIRUBIN,TOTAL 0.6 mg/dL (0.2-1.0); BUN - BLOOD UREA NITROGEN 18 mg/dL (6-20); CALCIUM 9.1 mg/dL (8.5-10.3); CARBON DIOXIDE - CO2 22 mmol/L (21-32); CHLORIDE 104 mmol/L (101-111); CREATININE 1.5 mg/dL (0.6-1.3); GFR - MDRD 46 (>89); GLUCOSE 115 mg/dL (74-104); LIPASE < 10 U/L (11-82); MAGNESIUM 1.4 mg/dL (1.7-2.3); PHOSPHORUS 2.1 mg/dL (2.5-5.0); POTASSIUM 3.8 mmol/L (3.5-4.5); SODIUM 135 mmol/L (135-145); TOTAL PROTEIN 6.2 g/dL (6.4-8.9)
[2023-09-12] MEDS ORDERED: MAGNESIUM SULFATE 2 GRAM 2 GM/50 ML BAG IV ONE (14:33)
[2023-09-12 15:39] VITALS: O2SAT 100
[2023-09-12 16:06] VITALS: BP 143/65
== END 2023-09-12 16:04 | disposition home or self-care (01) ==
LOC: ED 13:33
DX: E86.0 Dehydration (principal); E83.42 Hypomagnesemia; R00.0 Tachycardia, unspecified; C61 Malignant neoplasm of prostate; C25.9 Malignant neoplasm of pancreas, unspecified; Z79.899 Other long term (current) drug therapy; F17.200 Nicotine dependence, unspecified, uncomplicated
CPT/HCPCS: 36415; 80053; 83690; 83735; 84100; 85025; 96361; 96365; 99284

== ENCOUNTER 2023-11-11 13:05 | Emergency (ER) | payer MEDICARE, OTHER | END 2023-11-11 13:33 | disposition left against medical advice (07) | LOC: ED 13:05 | DX: Z53.21 Procedure and treatment not carried out due to patient leaving prior to being seen by health care provider (principal) ==

== ENCOUNTER 2023-12-13 15:07 | Emergency (ER) | payer MEDICARE, OTHER ==
[2023-12-13 15:39] VITALS: O2SAT 100
--- NOTE | 2023-12-13 16:55 | ED Physician Documentation ---
PD HPI ABD PAIN - Stated complaint Stated Complaint: GI - Chief complaint Chief Complaint: Abd Pain - History obtained from History obtained from: Patient - Additional information Additional information: He presents with his . He has a history of metastatic pancreatic cancer undergoing treatment at the [facility]. Over the last few days has developed significant pain with his bowel movements in the rectum. Denies vomiting or abdominal pain. There is been no bleeding. PD PAST MEDICAL HISTORY - Past Medical History Past Medical History: Yes Cardiovascular: Atrial fibrillation, Murmur GI: GERD, Other : Other Musculoskeletal: Chronic back pain - Past Surgical History Past Surgical History: Yes Cardiovascular: CABG - Present Medications Home Medications: Ambulatory Orders Medication Instructions Recorded Confirmed Cyclobenzaprine [Flexeril] 10 mg PO TID PRN 06/22/13 06/22/13 Esomeprazole Magnesium [Nexium] 40 mg PO DAILY 06/22/13 06/22/13 Rosuvastatin [Crestor] 20 mg PO QPM 06/22/13 06/22/13 Warfarin [Coumadin] 2.5 mg PO QDAC 06/22/13 06/22/13 Albuterol Sulf [Ventolin Hfa 1 - 2 puffs INH Q4HR PRN #1 each 10/03/22 Inhaler] Benzonatate [Tessalon] 200 mg PO TID PRN #30 cap 10/03/22 Promethazine [Phenergan] 25 mg PO Q6H PRN #10 tab 10/03/22 predniSONE [Deltasone] 40 mg PO DAILY #10 tablet 10/03/22 Ondansetron Odt [Zofran] 4 mg TL Q6H PRN #10 tablet 07/14/23 Oxycodone HCl/Acetaminophen 1 - 2 each PO Q6H PRN #14 tablet 07/14/23 [Percocet 5-325 mg Tablet] levoFLOXacin [Levaquin] 500 mg PO QD #28 tablet 07/14/23 metroNIDAZOLE [Flagyl] 500 mg PO BID 14 Days #28 tablet 07/14/23 Lidocaine Jelly 2% [Glydo] 2 ml RC QID PRN #100 ml 12/13/23 Nitroglycerin [Rectiv] 1 gm RC BID #90 gm 12/13/23 - Allergies Allergies/Adverse Reactions: Allergies Allergy/AdvReac Type Severity Reaction Status Date / Time amoxicillin Allergy Unknown Verified 12/13/23 16:24 - Social History Does the pt smoke?: Yes Smoking Status: Current every day smoker Does the pt drink ETOH?: Yes Does the pt have substance abuse?: No - POLST Patient has POLST: No PD ED PE NORMAL - Vitals Vital signs reviewed: Yes - General General: Alert and oriented X 3, No acute distress - Abdomen Abdomen: Normal bowel sounds, Soft, Non tender - Rectal Rectal: Other (He does have an anal fissure at 6:00 that is quite tender. No hemorrhoid. No blood.) - Neuro Neuro: Alert and oriented X 3, Normal speech Results - Vitals Vitals: Vital Signs - 24 hr 12/13/23 15:28 Temperature 36.5 C Heart Rate 89 Respiratory 16 Rate Blood Pressure 140/90 H O2 Saturation 100 Oxygen O2 Source Room air PD Medical Decision Making - ED course ED course: 73-year-old gentleman with an anal fissure. Benign abdominal exam, he is not impacted but may still be a little constipated and an increase in MiraLAX was recommended. Departure - Departure Disposition: 01 Home, Self Care Clinical Impression: Anal fissure Condition: Good Record reviewed to determine appropriate education?: Yes Instructions: Sitz Bath, ED Fissure Anal Ch Prescriptions: Lidocaine Jelly 2% [Glydo] 2 ml RC QID PRN #100 ml PRN Reason: Pain Nitroglycerin [Rectiv] 1 gm RC BID #90 gm Comments: You are seen today for an anal fissure. I am prescribing nitroglycerin topically as well as lidocaine jelly. Use the nitroglycerin twice a day and then the lidocaine jelly as needed for when you are actually having more pain. Make sure your stools stay very soft, you can double the MiraLAX, and do not be too aggressive when wiping your backside, ideally would be a sitz bath or bidet. Call your doctor to arrange a follow-up appointment, make the next available appointment. In the interim, return anytime if worse or if new symptoms develop. Forms: PCP List
[2023-12-13 17:36] VITALS: BP 113/58
== END 2023-12-13 17:27 | disposition home or self-care (01) ==
LOC: ED 15:07
DX: K60.2 Anal fissure, unspecified (principal); F17.200 Nicotine dependence, unspecified, uncomplicated
CPT/HCPCS: 99282; 99283

== ENCOUNTER 2024-01-22 08:00 | Outpatient (CLI) | payer MEDICARE, OTHER | END 2024-01-22 23:59 | disposition home or self-care (01) | LOC: PC 08:00 | PROVIDERS: ATTEND Nurse Practitioner Adult Health | DX: Z51.5 Encounter for palliative care (principal); C24.1 Malignant neoplasm of ampulla of Vater; C78.7 Secondary malignant neoplasm of liver and intrahepatic bile duct; B37.0 Candidal stomatitis; F32.A Depression, unspecified; M54.9 Dorsalgia, unspecified; R63.0 Anorexia; G89.3 Neoplasm related pain (acute) (chronic); L08.0 Pyoderma; F41.8 Other specified anxiety disorders; I25.10 Atherosclerotic heart disease of native coronary artery without angina pectoris; I25.2 Old myocardial infarction; Z68.20 Body mass index [BMI] 20.0-20.9, adult; I10 Essential (primary) hypertension; I48.91 Unspecified atrial fibrillation; R53.83 Other fatigue | CPT/HCPCS: 99350 ==